=== PATIENT | male | born 1995 | race Two or more races ===

== ENCOUNTER 2017-03-04 20:17 | Inpatient (IN) | payer MEDICAID ==
[~2017-03-04] VITALS: Ht 182.9 cm; Wt 92.3 kg
[~2017-03-04 20:17] MED LIST: ETOMIDATE 20 MG/10 ML ONE; MIDAZOLAM 1 MG/ML, 5ML ONE; PROPOFOL 10 MG/ML, 100ML IV ONE; SUCCINYLCHOLINE 20 MG/ML, 10ML ONE; VECURONIUM 10 MG ONE
[2017-03-04] MEDS ORDERED: NALOXONE 1 MG/ML, 2ML ONE (20:22)
[2017-03-04] MEDS: PROPOFOL 100 ML IV PRN ×2 (20:36→23:45)
[2017-03-04] MEDS ORDERED: SODIUM CHLORIDE 0.9% 1,000ML IVBOLUS ONE (21:00)
[2017-03-04] MEDS ORDERED: SUCCINYLCHOLINE 20 MG/ML, 10ML IVPush ONE (21:00)
[2017-03-04] MEDS ORDERED: ETOMIDATE 20 MG/10 ML IV ONE (21:00)
[2017-03-04] MEDS ORDERED: ONDANSETRON 2MG/ML, 2ML IVPush ONE (21:00)
[2017-03-04] MEDS ORDERED: NALOXONE 1 MG/ML, 2ML IVPush ONE (21:00)
[2017-03-04] MEDS ORDERED: VECURONIUM 10 MG IVPush ONE (21:00)
[2017-03-04 21:05] LABS: DAU SCREEN DISCLAIMER
[2017-03-04 21:19] LABS: ASPARTATE AMINO TRANSFERASE 29 U/L (15-37); BLOOD UREA NITROGEN 8 mg/dL (7-18)
[2017-03-04 21:22] LABS: ACETAMINOPHEN < 2 mcg/mL (10-30)
[2017-03-04] MEDS ORDERED: PROPOFOL 100 ML IV PRN (21:45)
[2017-03-04] MEDS ORDERED: FOLIC ACID 1 MG in DEXTROSE 5% 50 ML IV ONE (22:00)
[2017-03-04] MEDS ORDERED: LIDOCAINE-MPF 1%, 2ML ENDO PRN (22:00)
[2017-03-04] MEDS ORDERED: ONDANSETRON 2MG/ML, 2ML IVPush PRN (22:00)
[2017-03-04] MEDS ORDERED: PHARMACY MAY ADJ FOR RENAL FX MC SCH (22:00)
[2017-03-04] MEDS ORDERED: morphine SULFATE 10 MG/ML, 1ML IVPush PRN (22:00)
[2017-03-04] MEDS ORDERED: LORazepam 2 MG/ML, 1ML IVPush PRN (22:00)
[2017-03-04] MEDS ORDERED: ACETAMINOPHEN 325 MG TABLET PO PRN (22:00)
[2017-03-04] MEDS ORDERED: NS + 20MEQ KCL 1,000 ML IV ONE (22:03)
[2017-03-04] MEDS ORDERED: ENOXAPARIN 40 MG/0.4 ML ONE (22:03)
[2017-03-04] MEDS: ENOXAPARIN 40 MG/0.4 ML SQ SCH (22:05)
[2017-03-04] MEDS: NS + 20MEQ KCL 1,000 ML IV SCH (22:06)
[2017-03-04] MEDS ORDERED: PROPOFOL 100 ML IV ONE (22:22)
[2017-03-04 22:41] LABS: ABG COLLECTION SITE RIGHT BRACHIAL
[2017-03-05] MEDS: PROPOFOL 100 ML IV PRN ×2 (00:04→03:53)
[2017-03-05] MEDS: MIDAZOLAM HCL 25 MG in SODIUM CHLORIDE 0.9% 245 ML IV PRN ×2 (03:53→04:14)
[2017-03-05] MEDS ORDERED: PROPOFOL 100 ML IV ONE (04:12)
[2017-03-05 05:52] LABS: BLOOD UREA NITROGEN 7 mg/dL (7-18)
[2017-03-05 06:30] VITALS: BP 137/66
[2017-03-05 09:24] VITALS: BP 129/74
[2017-03-05] MEDS: MULTIVITAMIN 1 TABLET PO SCH (09:54)
[2017-03-05] MEDS: THIAMINE 100MG TABLET PO SCH (09:54)
[2017-03-05] MEDS: NS + 20MEQ KCL 1,000 ML IV SCH (10:35)
[2017-03-05 13:49] VITALS: BP 132/79
[2017-03-05 20:00] VITALS: BP 134/76
[2017-03-05] MEDS: ENOXAPARIN 40 MG/0.4 ML SQ SCH (21:57)
[2017-03-06 01:27] VITALS: BP 119/68
[2017-03-06 05:26] LABS: BLOOD UREA NITROGEN 10 mg/dL (7-18)
[2017-03-06 07:23] VITALS: BP 123/73
[2017-03-06] MEDS: THIAMINE 100MG TABLET PO SCH (09:26)
[2017-03-06] MEDS: MULTIVITAMIN 1 TABLET PO SCH (09:26)
[2017-03-06] MEDS: SERTRALINE 50MG TABLET PO SCH (09:26)
[2017-03-06] MEDS: ARIPIPRAZOLE 2 MG TABLET PO SCH (09:26)
[2017-03-06 14:19] VITALS: BP 139/84
[2017-03-06 19:46] VITALS: BP 134/77
[2017-03-06] MEDS: ENOXAPARIN 40 MG/0.4 ML SQ SCH (21:35)
[2017-03-07 05:18] LABS: BLOOD UREA NITROGEN 10 mg/dL (7-18)
[2017-03-07 07:29] VITALS: BP 153/79
[2017-03-07] MEDS: MULTIVITAMIN 1 TABLET PO SCH (09:07)
[2017-03-07] MEDS: ARIPIPRAZOLE 2 MG TABLET PO SCH (09:07)
[2017-03-07] MEDS: SERTRALINE 50MG TABLET PO SCH (09:07)
[2017-03-07] MEDS: THIAMINE 100MG TABLET PO SCH (09:07)
[2017-03-07 19:37] VITALS: BP 145/78
[2017-03-07] MEDS: ENOXAPARIN 40 MG/0.4 ML SQ SCH (22:00)
[2017-03-08 07:36] VITALS: BP 130/79
[2017-03-08] MEDS: ARIPIPRAZOLE 2 MG TABLET PO SCH (08:42)
[2017-03-08] MEDS: SERTRALINE 50MG TABLET PO SCH (08:42)
[2017-03-08] MEDS: MULTIVITAMIN 1 TABLET PO SCH (08:42)
[2017-03-08] MEDS: THIAMINE 100MG TABLET PO SCH (08:42)
[2017-03-08] MEDS ORDERED: BENZTROPINE 1 MG TABLET PO PRN (16:30)
[2017-03-08] MEDS ORDERED: DIPHENHYDRAMINE 50 MG CAPSULE PO PRN (16:30)
[2017-03-08] MEDS ORDERED: ARIPIPRAZOLE 5 MG TABLET PO ONE (18:00)
[2017-03-08 20:00] VITALS: BP 131/82
[2017-03-08] MEDS: ENOXAPARIN 40 MG/0.4 ML SQ SCH (22:00)
[2017-03-09 08:33] VITALS: BP 136/71
[2017-03-09] MEDS: SERTRALINE 50MG TABLET PO SCH (09:06)
[2017-03-09] MEDS: ARIPIPRAZOLE 10 MG TABLET PO SCH (09:06)
[2017-03-09] MEDS: THIAMINE 100MG TABLET PO SCH (09:06)
[2017-03-09] MEDS: MULTIVITAMIN 1 TABLET PO SCH (09:06)
[2017-03-09 19:32] VITALS: BP 138/73
[2017-03-09] MEDS: ENOXAPARIN 40 MG/0.4 ML SQ SCH (22:00)
[2017-03-10 07:41] VITALS: BP 113/73
[2017-03-10] MEDS: ARIPIPRAZOLE 10 MG TABLET PO SCH (08:11)
[2017-03-10] MEDS: SERTRALINE 50MG TABLET PO SCH (08:11)
[2017-03-10] MEDS: THIAMINE 100MG TABLET PO SCH (08:11)
[2017-03-10] MEDS: MULTIVITAMIN 1 TABLET PO SCH (08:11)
[2017-03-10 19:57] VITALS: BP 120/78
[2017-03-10] MEDS: ENOXAPARIN 40 MG/0.4 ML SQ SCH (20:50)
[2017-03-11 08:13] VITALS: BP 110/61
[2017-03-11] MEDS: SERTRALINE 50MG TABLET PO SCH (09:15)
[2017-03-11] MEDS: ARIPIPRAZOLE 10 MG TABLET PO SCH (09:15)
[2017-03-11] MEDS: THIAMINE 100MG TABLET PO SCH (09:15)
[2017-03-11] MEDS: MULTIVITAMIN 1 TABLET PO SCH (09:16)
[2017-03-11] MEDS: ENOXAPARIN 40 MG/0.4 ML SQ SCH (19:53)
[2017-03-11 20:37] VITALS: BP 124/77
[2017-03-12 07:49] VITALS: BP 108/61
[2017-03-12] MEDS: SERTRALINE 50MG TABLET PO SCH (08:13)
[2017-03-12] MEDS: ARIPIPRAZOLE 10 MG TABLET PO SCH (08:13)
[2017-03-12] MEDS: MULTIVITAMIN 1 TABLET PO SCH (08:16)
[2017-03-12] MEDS: THIAMINE 100MG TABLET PO SCH (08:16)
[2017-03-12 19:37] VITALS: BP 123/79
[2017-03-12] MEDS: ENOXAPARIN 40 MG/0.4 ML SQ SCH (22:00)
[2017-03-13 07:47] VITALS: BP 119/70
[2017-03-13] MEDS: ARIPIPRAZOLE 10 MG TABLET PO SCH (08:57)
[2017-03-13] MEDS: MULTIVITAMIN 1 TABLET PO SCH (08:57)
[2017-03-13] MEDS: SERTRALINE 50MG TABLET PO SCH (08:58)
[2017-03-13] MEDS: THIAMINE 100MG TABLET PO SCH (08:58)
[2017-03-13 20:00] VITALS: BP 107/70
[2017-03-13] MEDS: ENOXAPARIN 40 MG/0.4 ML SQ SCH (20:27)
[2017-03-13] MEDS ORDERED: QUETIAPINE 100MG TABLET PO SCH (21:00)
[2017-03-14 07:13] VITALS: BP 132/85
[2017-03-14] MEDS: SERTRALINE 50MG TABLET PO SCH (08:27)
[2017-03-14] MEDS: ARIPIPRAZOLE 10 MG TABLET PO SCH (08:27)
[2017-03-14] MEDS: THIAMINE 100MG TABLET PO SCH (08:27)
[2017-03-14] MEDS: MULTIVITAMIN 1 TABLET PO SCH (08:27)
[2017-03-14] MEDS ORDERED: MULT1TAB60 PO (14:09)
[2017-03-14] MEDS ORDERED: SERT50TA5 PO (15:04)
[2017-03-14] MEDS ORDERED: QUET100T PO (15:04)
[2017-03-14] MEDS ORDERED: ARIP10TA13 PO (15:04)
== END 2017-03-14 15:15 | disposition home or self-care (01) | DRG 896 ==
LOC: ED 21:34 → EDIP 21:40 → EDBD 21:40 → 4EST 03-05 05:42 → 3E 03-06 14:16
PROVIDERS: ADMIT Family Medicine; ATTEND Family Medicine
PROC: 0BH17EZ Insertion of Endotracheal Airway into Trachea, Via Natural or Artificial Opening (ICD-10-PCS; principal; 2017-03-04)
PROC: 5A1935Z Respiratory Ventilation, Less than 24 Consecutive Hours (ICD-10-PCS; 2017-03-04)
PROC: 0T9B70Z Drainage of Bladder with Drainage Device, Via Natural or Artificial Opening (ICD-10-PCS; 2017-03-04)
DX: F10.229 Alcohol dependence with intoxication, unspecified (principal); J96.90 Respiratory failure, unspecified, unspecified whether with hypoxia or hypercapnia; F33.2 Major depressive disorder, recurrent severe without psychotic features; R45.851 Suicidal ideations; F22 Delusional disorders; F12.90 Cannabis use, unspecified, uncomplicated; F15.10 Other stimulant abuse, uncomplicated; F43.10 Post-traumatic stress disorder, unspecified; G47.10 Hypersomnia, unspecified; F41.9 Anxiety disorder, unspecified; Z56.0 Unemployment, unspecified; Z59.0 Homelessness; Z91.5 Personal history of self-harm; Z81.8 Family history of other mental and behavioral disorders
CPT/HCPCS: 31500; 36415; 36600; 70450; 71010; 80048; 80053; 80307; 80329; 81003; 82803; 83735; 84439; 84443; 84478; 85025; 93005; 94002; 94003; 96361; 96374; 96375; 96376; J1650; J2250; J2704; J3480; G0480; J0330; J2310; J7030; J7050

== ENCOUNTER 2019-03-13 10:59 | Emergency (ER) | payer MEDICAID, OTHER ==
[~2019-03-13] VITALS: Ht 177.8 cm; Wt 90.0 kg
[2019-03-13 11:03] VITALS: BP 131/77
== END 2019-03-13 15:02 | disposition home or self-care (01) ==
LOC: ED 13:39
DX: S70.01XA Contusion of right hip, initial encounter (principal); X58.XXXA Exposure to other specified factors, initial encounter; Y93.89 Activity, other specified; Y92.89 Other specified places as the place of occurrence of the external cause; Y99.8 Other external cause status
CPT/HCPCS: 99283

== ENCOUNTER 2020-07-29 01:17 | Emergency (ER) | payer MEDICAID ==
[~2020-07-29] VITALS: Ht 170.2 cm; Wt 78.0 kg
[~2020-07-29 01:17] MED LIST changes: +ARIP10TA33 PO; +ARIP20TA5 PO; +BUSP5TAB2 PO; -ETOMIDATE 20 MG/10 ML ONE; -MIDAZOLAM 1 MG/ML, 5ML ONE; +MIRT45TA3 PO; +MULT-449 PO; -PROPOFOL 10 MG/ML, 100ML IV ONE; +QUET100T PO; +SERT50TA28 PO; -SUCCINYLCHOLINE 20 MG/ML, 10ML ONE; -VECURONIUM 10 MG ONE; +VENL150C PO; +gabapentin PO
--- NOTE | 2020-07-29 03:15 | NUR ---
pt to room 1. began crying saying he needs to be back on his medication as the voices are too much. c/o pain to left wrist. aware.
[2020-07-29] MEDS ORDERED: ZIPRASIDONE 20 MG INJ IM ONE ×2 (03:25→03:30)
--- NOTE | 2020-07-29 04:09 | NUR ---
pt currently resting in bed, anxious and agitated at times, but calms himself more.
--- NOTE | 2020-07-29 04:09 | NUR ---
pt medicated IM with meds per MD order at 0335.
--- NOTE | 2020-07-29 05:37 | NUR ---
pt sleeping. in hosp madi schultz up x2
--- NOTE | 2020-07-29 06:36 | NUR ---
at discharge, pt complaining of pain to left wrist again. did not mention it to the doctor when assesed earlier. states too much pain on left wrist. xray ordered before dc
--- NOTE | 2020-07-29 06:51 | NUR ---
BEDSIDE REPORT RECEIVED FROM MARINA NATH.
--- NOTE | 2020-07-29 06:51 | NUR ---
Report and care given to day shift RN
--- NOTE | 2020-07-29 07:02 | NUR ---
PT SITTING UPRIGHT ON GURNEY WITH EYES CLOSED, RESTING COMFORTABLY, NAD, VSS. PT DENIES ANY NEEDS AT THIS TIME. CALL LIGHT AND PERSONAL BELONINGS WITHIN REACH.
--- NOTE | 2020-07-29 07:39 | NUR ---
PT REFUSING TO WAKE UP FOR RE-ASSESSMENT. AWAITING D/C
--- NOTE | 2020-07-29 07:45 | NUR ---
ATTEMPT TO D/C PT FROM ED, REFUSING TO WAKE UP AND ANSWER ANY QUESTIONS. SECURITY TO BEDSIDE TO ASSIST, PT AWKAE AND STATING "I WANT TO KILL MYSELF, I WILL KILL MYSELF WHEN I LEAVE THIS PLACE. I HAVE THE ABILITY TO GET HEROIN TO OD, THATS MY PLAN, OR I WILL TAKE A BUNCH OF PILLS." PT STATES "I REALLY WANT HELP, I NEED HELP". [facility] NURSE AT BEDSIDE DISCUSSING OPTIONS IN [facility] AND RESOURCES. PT ABLE TO CHECK IN TO [facility] VOLUNTARILY. AWAITING FURTHER INFO FROM [facility]. PT REMAINS CALM AND COOPERATIVE WITH STAFF. Addendum: 07/29/20 at 0923 by PHI ATTEMPT TO D/C PT FROM ED, REFUSING TO WAKE UP AND ANSWER ANY QUESTIONS. SECURITY TO BEDSIDE TO ASSIST, PT AWKAE AND STATING "I WANT TO KILL MYSELF, I WILL KILL MYSELF WHEN I LEAVE THIS PLACE. I HAVE THE ABILITY TO GET HEROIN TO OD, THATS MY PLAN, OR I WILL TAKE A BUNCH OF PILLS." PT STATES "I REALLY WANT HELP, I NEED HELP". ED MD AWARE AND DOES NOT FEEL THE PATIENT SHOULD BE PLACED ON A LEGAL HOLD AT THIS TIME. [facility] NURSE AT BEDSIDE DISCUSSING OPTIONS IN [facility] [place] AND RESOURCES. PT ABLE TO CHECK IN TO [facility] VOLUNTARILY. AWAITING FURTHER INFO FROM [facility]. PT REMAINS CALM AND COOPERATIVE WITH STAFF.
--- NOTE | 2020-07-29 08:31 | NUR ---
PT SITTING UPRIGHT ON GURNEY WITH EYES CLOSED, RESTING COMFORTABLY, NAD, VSS. PT DENIES ANY NEEDS AT THIS TIME. CALL LIGHT AND PERSONAL BELONINGS WITHIN REACH. RAPID COVID SWAB PERFORMED PER MD ORDER.
--- NOTE | 2020-07-29 09:05 | NUR ---
PT SITTING UPRIGHT ON GURNEY WITH EYES CLOSED, RESTING COMFORTABLY, NAD, VSS. PT DENIES ANY NEEDS AT THIS TIME. CALL LIGHT AND PERSONAL BELONINGS WITHIN REACH.
[2020-07-29 09:26] VITALS: BP 118/84
--- NOTE | 2020-07-29 09:31 | NUR ---
Patient given discharge instructions and they have confirmed that they understand the instructions. Patient to U to admit self vouluntarily. Pt verbalized understanding of instructions and tear stating "I need this help, I need the help to not kill myself. Thank You". Patient calm and cooperative with staff. Pt escorted to U by U RN.
== END 2020-07-29 09:34 | disposition home or self-care (01) ==
LOC: ED 08:13
DX: F15.159 Other stimulant abuse with stimulant-induced psychotic disorder, unspecified (principal); Z20.828 Contact with and (suspected) exposure to other viral communicable diseases; M25.532 Pain in left wrist; F17.210 Nicotine dependence, cigarettes, uncomplicated; Z72.9 Problem related to lifestyle, unspecified
CPT/HCPCS: 73110; 87635; 96372; 99285; 99406; J3486

== ENCOUNTER 2020-07-29 08:59 | Inpatient (IN) | payer MEDICAID ==
[~2020-07-29] VITALS: Ht 167.6 cm; Wt 99.0 kg
[2020-07-29] MEDS ORDERED: BISACODYL 10 MG SUPP PR PRN (09:00)
[2020-07-29] MEDS ORDERED: ACETAMINOPHEN 325 MG TABLET PO PRN (09:00)
[2020-07-29] MEDS ORDERED: POLYETHYLENE GLYCOL 17 GM PACKET PO PRN (09:00)
[2020-07-29] MEDS ORDERED: DOCUSATE 100 MG CAPSULE PO PRN (09:00)
[2020-07-29] MEDS ORDERED: ONDANSETRON ODT 4 MG PO PRN (09:00)
[2020-07-29 09:25] VITALS: BP 135/83
[2020-07-29 09:48] LABS: MICROSCOPIC NOT IND
[2020-07-29 11:07] LABS: BASOPHILS % (AUTO) 1 % (0-1); EOSINOPHILS % (AUTO) 1 % (1-7); LYMPHOCYTES % (AUTO) 17 % (22-44); MEAN CORPUSCULAR HEMOGLOBIN 30.6 pg (27.5-34.5); MEAN CORPUSCULAR HGB CONC 33.9 g/dL (33.2-36.2); MONOCYTES % (AUTO) 13 % (2-9); NEUTROPHILS % (AUTO) 69 % (42-75); PLATELET COUNT 279 x10^3/uL (130-400); RED BLOOD COUNT 4.83 x10^6/uL (4.38-5.82); RED CELL DISTRIBUTION WIDTH 13.6 % (9.4-14.8)
[2020-07-29 11:11] LABS: ALBUMIN 3.6 g/dL (3.4-5.0); ANION GAP 9 mmol/L (5-15); CALCIUM 8.7 mg/dL (8.5-10.1); CHLORIDE 117 mmol/L (98-107)
[2020-07-29 11:19] LABS: ALANINE AMINOTRANSFERASE 38 U/L (12-78); ALKALINE PHOSPHATASE 91 U/L (45-117); BILIRUBIN,TOTAL 1.1 mg/dL (0.2-1.0); CHOL/HDL RATIO 1.8; CHOLESTEROL, TOTAL 150 mg/dL (140-239); CREATININE 0.98 mg/dL (0.7-1.3); FREE T4 (FREE THYROXINE) 1.33 ng/dL (0.76-1.46); HDL CHOL % 55 % (26-37); HDL CHOLESTEROL (DIRECT) 83 mg/dL (40-60); LDL CHOLESTEROL,CALCULATED 56 mg/dL (54-169); LDL/HDL RATIO 0.7 (0.5-3.0); TOTAL PROTEIN 7.4 g/dL (6.4-8.2); TRIGLYCERIDES 55 mg/dL (50-200); VLDL CHOLESTEROL 11 mg/dL (0-25)
[2020-07-29 11:21] LABS: MD NO
[2020-07-29 11:27] LABS: AMPHETAMINE SCREEN, URINE Positive (Negative); BARBITURATE SCREEN, URINE Negative (Negative); BENZODIAZEPINE SCREEN, URINE Positive (Negative); CANNABINOID SCREEN, URINE Positive (Negative); COCAINE SCREEN, URINE Negative (Negative); METHADONE SCREEN, URINE Negative (Negative); OPIATE SCREEN, URINE Negative (Negative)
[2020-07-29] MEDS: NICOTINE 14MG/24 HR PATCH.TD24 TD SCH (13:00)
[2020-07-29 14:03] LABS: TROPONIN I < 0.015 ng/mL (0.000-0.045)
[2020-07-29 19:43] VITALS: BP 120/74
[2020-07-30 07:17] VITALS: BP 127/67
[2020-07-30] MEDS: FOLIC ACID 1 MG TABLET PO SCH (08:35)
[2020-07-30] MEDS: THIAMINE 100MG TABLET PO SCH (08:35)
[2020-07-30] MEDS ORDERED: ACAMPROSATE 333 MG TABLET.DR PO SCH (09:00)
[2020-07-30 09:56] LABS: ALANINE AMINOTRANSFERASE 32 U/L (12-78); ALBUMIN 3.4 g/dL (3.4-5.0); ANION GAP 6 mmol/L (5-15); CALCIUM 8.7 mg/dL (8.5-10.1); CHLORIDE 108 mmol/L (98-107)
[2020-07-30 09:58] LABS: ALKALINE PHOSPHATASE 94 U/L (45-117); BILIRUBIN,TOTAL 0.7 mg/dL (0.2-1.0); TOTAL PROTEIN 7.3 g/dL (6.4-8.2)
[2020-07-30] MEDS: ARIPIPRAZOLE 10 MG TABLET PO SCH (10:28)
[2020-07-30] MEDS: BUPROPION SR 150 MG TABLET PO SCH (10:28)
[2020-07-30] MEDS: BUPRENORPHINE/NALOXONE 2-0.5MG SL SCH ×2 (10:30→20:27)
[2020-07-30 10:33] LABS: HCT (SEDRATE) 46.2 % (39.2-51.8)
[2020-07-30 10:36] LABS: C-REACTIVE PROTEIN, QUANT 0.27 mg/dL (0.02-0.49)
[2020-07-30 10:38] LABS: TROPONIN I < 0.015 ng/mL (0.000-0.045)
[2020-07-30] MEDS: NICOTINE 14MG/24 HR PATCH.TD24 TD SCH (13:11)
[2020-07-30 19:05] VITALS: BP 128/73
[2020-07-30] MEDS: CARBAMAZEPINE 200 MG TABLET PO SCH (20:27)
[2020-07-30] MEDS: QUETIAPINE 100MG TABLET PO SCH (20:27)
[2020-07-31 07:20] VITALS: BP 99/64
[2020-07-31] MEDS: FOLIC ACID 1 MG TABLET PO SCH (08:34)
[2020-07-31] MEDS: ARIPIPRAZOLE 10 MG TABLET PO SCH (08:35)
[2020-07-31] MEDS: THIAMINE 100MG TABLET PO SCH (08:35)
[2020-07-31] MEDS: BUPROPION SR 150 MG TABLET PO SCH ×2 (08:35→12:51)
[2020-07-31] MEDS: BUPRENORPHINE/NALOXONE 2-0.5MG SL SCH ×2 (08:36→20:47)
[2020-07-31] MEDS: NICOTINE 14MG/24 HR PATCH.TD24 TD SCH (12:51)
[2020-07-31 19:49] VITALS: BP 115/73
[2020-07-31] MEDS: QUETIAPINE 100MG TABLET PO SCH (20:46)
[2020-07-31] MEDS: CARBAMAZEPINE 200 MG TABLET PO SCH (20:47)
[2020-08-01 07:22] VITALS: BP 122/75
[2020-08-01] MEDS: ARIPIPRAZOLE 10 MG TABLET PO SCH (08:21)
[2020-08-01] MEDS: BUPRENORPHINE/NALOXONE 2-0.5MG SL SCH ×3 (08:21→20:12)
[2020-08-01] MEDS: FOLIC ACID 1 MG TABLET PO SCH (08:21)
[2020-08-01] MEDS: THIAMINE 100MG TABLET PO SCH (08:21)
[2020-08-01] MEDS: BUPROPION SR 150 MG TABLET PO SCH ×2 (08:21→12:16)
[2020-08-01] MEDS: NICOTINE 14MG/24 HR PATCH.TD24 TD SCH (12:16)
[2020-08-01 19:48] VITALS: BP 119/79
[2020-08-01] MEDS: QUETIAPINE 100MG TABLET PO SCH (20:11)
[2020-08-01] MEDS: CARBAMAZEPINE 200 MG TABLET PO SCH (20:15)
[2020-08-02 07:17] VITALS: BP 105/67
[2020-08-02 07:18] VITALS: BP 110/71
[2020-08-02] MEDS: THIAMINE 100MG TABLET PO SCH (08:58)
[2020-08-02] MEDS: ARIPIPRAZOLE 10 MG TABLET PO SCH (08:58)
[2020-08-02] MEDS: BUPROPION SR 150 MG TABLET PO SCH ×2 (08:58→12:50)
[2020-08-02] MEDS: FOLIC ACID 1 MG TABLET PO SCH (08:58)
[2020-08-02] MEDS: NICOTINE 14MG/24 HR PATCH.TD24 TD SCH (12:58)
[2020-08-02] MEDS ORDERED: CARB200T4 PO (15:10)
[2020-08-02] MEDS ORDERED: NICO-486 TD (15:10)
[2020-08-02] MEDS ORDERED: ARIP10TA33 PO (15:10)
[2020-08-02] MEDS ORDERED: QUET100T PO (15:10)
[2020-08-02] MEDS ORDERED: BUPR150T73 PO (15:10)
[2020-08-02 19:07] VITALS: BP 94/58
[2020-08-02] MEDS: QUETIAPINE 100MG TABLET PO SCH (20:26)
[2020-08-02] MEDS: CARBAMAZEPINE 200 MG TABLET PO SCH (20:26)
[2020-08-03 07:25] VITALS: BP 124/77
[2020-08-03] MEDS: FOLIC ACID 1 MG TABLET PO SCH (08:33)
[2020-08-03] MEDS: ARIPIPRAZOLE 10 MG TABLET PO SCH (08:33)
[2020-08-03] MEDS: BUPROPION SR 150 MG TABLET PO SCH (08:33)
[2020-08-03] MEDS: THIAMINE 100MG TABLET PO SCH (08:33)
== END 2020-08-03 09:00 | disposition home or self-care (01) | DRG 753 ==
LOC: 3E 09:38
PROVIDERS: ADMIT Psychiatry & Neurology Psychosomatic Medicine; ATTEND Psychiatry & Neurology Psychosomatic Medicine
DX: F31.30 Bipolar disorder, current episode depressed, mild or moderate severity, unspecified (principal); E87.0 Hyperosmolality and hypernatremia; F11.20 Opioid dependence, uncomplicated; F15.20 Other stimulant dependence, uncomplicated; F43.10 Post-traumatic stress disorder, unspecified; R74.01 Elevation of levels of liver transaminase levels; G47.00 Insomnia, unspecified; F17.210 Nicotine dependence, cigarettes, uncomplicated; F98.8 Other specified behavioral and emotional disorders with onset usually occurring in childhood and adolescence; Z79.899 Other long term (current) drug therapy; Z91.5 Personal history of self-harm
CPT/HCPCS: J0572 ×3; 36415; 71045; 80053; 80061; 80307; 81003; 82140; 84439; 84443; 84484; 85025; 85651; 86140; 87040; 87635; 93005; 93306; 96372; 99285; 99406; J3486

== ENCOUNTER 2020-09-21 14:38 | Emergency (ER) | payer MEDICAID ==
[~2020-09-21] VITALS: Ht 177.8 cm; Wt 82.0 kg
[~2020-09-21 14:38] MED LIST changes: +BUPR150T73 PO; +CARB200T4 PO; +NICO-486 TD
--- NOTE | 2020-09-21 15:17 | NUR ---
Dr. Edward ZAMORA swabbed and walked to lab. Pt denies any symptoms or medical history, just here for NOAH swab that he needs to get into a program
[2020-09-21 15:31] VITALS: BP 148/91
== END 2020-09-21 15:32 | disposition home or self-care (01) ==
LOC: ED 15:26
DX: F15.220 Other stimulant dependence with intoxication, uncomplicated (principal); Z20.822 Contact with and (suspected) exposure to COVID-19
CPT/HCPCS: 87635; 99283

== ENCOUNTER 2020-10-14 17:56 | Emergency (ER) | payer MEDICAID ==
[~2020-10-14] VITALS: Ht 172.7 cm; Wt 75.0 kg
[2020-10-14] MEDS ORDERED: ZIPRASIDONE 20 MG INJ IM ONE ×2 (18:12→18:17)
[2020-10-14] MEDS: ZIPRASIDONE 20 MG INJ IM ONE (18:14)
--- NOTE | 2020-10-14 18:14 | NUR ---
TASK RN: MEDICATED PER EMAR
--- NOTE | 2020-10-14 18:16 | NUR ---
ORDER RECEIVED FOR 4-POINT RESTRATINTS AND FLOW CHART STARTED FOR SAME.
[2020-10-14 18:24] LABS: BASOPHILS % (AUTO) 1 % (0-1); EOSINOPHILS % (AUTO) 0 % (1-7); LYMPHOCYTES % (AUTO) 22 % (22-44); MEAN CORPUSCULAR HEMOGLOBIN 30.3 pg (27.5-34.5); MEAN CORPUSCULAR HGB CONC 33.8 g/dL (33.2-36.2); MEAN PLATELET VOLUME 7.6 fL (7.4-10.4); MONOCYTES % (AUTO) 12 % (2-9); NEUTROPHILS % (AUTO) 64 % (42-75); PLATELET COUNT 435 x10^3/uL (130-400); RED BLOOD COUNT 4.51 x10^6/uL (4.38-5.82); RED CELL DISTRIBUTION WIDTH 13.3 % (9.4-14.8)
[2020-10-14 18:25] LABS: MD NO
[2020-10-14] MEDS ORDERED: DROPERIDOL 2.5MG/ML, 2ML IM ONE (18:30)
[2020-10-14] MEDS ORDERED: PLEASE ENTER HEIGHT AND WEIGHT MC SCH (18:30)
[2020-10-14 18:36] LABS: ALANINE AMINOTRANSFERASE 40 U/L (12-78); ALBUMIN 3.6 g/dL (3.4-5.0); ANION GAP 13 mmol/L (5-15); CALCIUM 9.2 mg/dL (8.5-10.1); CHLORIDE 104 mmol/L (98-107); CREATININE 1.19 mg/dL (0.7-1.3); SALICYLATE LEVEL < 1.7 mg/dL (2.8-20.0)
[2020-10-14 18:38] LABS: ALKALINE PHOSPHATASE 127 U/L (45-117); BILIRUBIN,TOTAL 0.8 mg/dL (0.2-1.0); TOTAL PROTEIN 8.1 g/dL (6.4-8.2)
--- NOTE | 2020-10-14 18:48 | NUR ---
PT NO LONGER YELLING OUT, TALKING CONTINUOUSLY TO HIMSELF. REMAINS IN FOUR POINT RESTRAINTS AT THIS TIME. REPORT GIVEN TO SLAVA NATH
--- NOTE | 2020-10-14 18:48 | NUR ---
BEDSIDE REPORT RECEIVED FROM PEÑA NATH
--- NOTE | 2020-10-14 19:00 | NUR ---
PT RESTING ON GURNEY, 4 PO[address]RAINTS REMAIN IN PLACE. PT REMAINS SLIGHTLY AGITATED. Q15 CHECKS CONTINUED, SITTER IN VIEW.
--- NOTE | 2020-10-14 20:00 | NUR ---
ALL RESTRAINTS REMOVED. PT CALM, RESTING ON GURNEY, NADN, VSS. PT DENIES ANY NEEDS AT THIS TIME. SAFETY PRECAUTIONS IN PLACE, SITTER IN VIEW
--- NOTE | 2020-10-14 21:03 | NUR ---
PT CALM, RESTING ON GURNEY, NADN, VSS. PT DENIES ANY NEEDS AT THIS TIME. SAFETY PRECAUTIONS IN PLACE, SITTER IN VIEW. PT UNABLE TO PROVIDE URINE SAMPLE AT THIS TIME.
--- NOTE | 2020-10-14 23:01 | NUR ---
PT SUPINE ON NADIA CONTRERAS VSS. PT STATES HE IS STILL UNABLE TO URINATE AT THIS TIME. SAFETY PRECAUTIONS IN PLACE. SITTER IN VIEW.
--- NOTE | 2020-10-15 00:04 | NUR ---
PT SUPINE ON NADIA CONTRERAS VSS. PT STATES HE IS STILL UNABLE TO URINATE AT THIS TIME. SAFETY PRECAUTIONS IN PLACE. SITTER IN VIEW.
--- NOTE | 2020-10-15 00:25 | NUR ---
PT PROVIDED URINE SAMPLE, SAMPLE WALKED TO BAG. ALL BELONGINGS, X2 BAGS, PLACED IN APPROPRIATE LOCKER. SAFETY RIGGS DOWN, SITTER IN VIEW. PT PROVIDED CRACKERS AND JUICE. PT STILL REPORTING SI WITH PLAN, "I WILL TAKE A BUNCH OF THE PILLS I HAVE".
[2020-10-15 00:42] LABS: AMPHETAMINE SCREEN, URINE Positive (Negative); BARBITURATE SCREEN, URINE Negative (Negative); BENZODIAZEPINE SCREEN, URINE Negative (Negative); CANNABINOID SCREEN, URINE Positive (Negative); COCAINE SCREEN, URINE Negative (Negative); METHADONE SCREEN, URINE Negative (Negative); OPIATE SCREEN, URINE Negative (Negative)
--- NOTE | 2020-10-15 00:58 | NUR ---
PT SUPINE ON GURNEY, RESTING COMFORTABLY, NADN. PT DENIES ANY NEEDS AT THIS TIME. CALL LIGHT AND PERSONAL BELONGINGS WITHIN REACH, SAFETY RIGGS DOWN, SITTER IN VIEW.
--- NOTE | 2020-10-15 04:01 | NUR ---
packet faxed to dejah BIANCHI, JEREMIAHH, RB, [facility]
--- NOTE | 2020-10-15 04:03 | NUR ---
PT SUPINE ON GURNEY, RESTING COMFORTABLY WITH EYES CLOSED. NO NEEDS AT THIS TIME. SAFETY RIGGS AND SAFETY PRECAUTIONS IN PLACE. SITTER IN VIEW.
--- NOTE | 2020-10-15 04:47 | NUR ---
Attempted to assess pt for admission to [facility]. Currently sedated. Discussed with psychiatrist. Plan to reassess when pt is more awake. Notified throughput.
--- NOTE | 2020-10-15 05:03 | NUR ---
PT SUPINE ON GURNEY, RESTING COMFORTABLY WITH EYES CLOSED. NO NEEDS AT THIS TIME. SAFETY RIGGS AND SAFETY PRECAUTIONS IN PLACE. SITTER IN VIEW.
--- NOTE | 2020-10-15 06:03 | NUR ---
PT SUPINE ON GURNEY, SLEEPING. NADN. NO NEEDS AT THIS TIME. SAFETY RIGGS DOWN, SITTER IN VIEW.
--- NOTE | 2020-10-15 06:52 | NUR ---
BEDSIDE REPORT TO MEL NATH
--- NOTE | 2020-10-15 06:53 | NUR ---
ASSUMED CARE OF PT. REPORT RECEIVED FROM SLAVA NATH. PT RESTING ON GURBIG BAY. PSA OUTSIDE DOOR W/IN DIRECT VISUAL OF PT. AZULN. WILL CONTINUE TO MONITOR
--- NOTE | 2020-10-15 07:51 | NUR ---
[facility]CE RN- CALLED U TO INQUIRE ABOUT THEM COMING DOWN TO ASSESS PATIENT FOR ADMISSION. JOSE STATES SHE WILL COME DOWN TO ASSESS PT.
[2020-10-15 08:30] VITALS: BP 122/63
--- NOTE | 2020-10-15 08:34 | NUR ---
PT CALM, SITTING UP ON GURNEY EATING PROVIDED BREAKFAST TRAY. STATES NO PAIN AT THIS TIME. U TEAM AT BEDSIDE FOR ASSESSMENT. VITAL SIGNS TAKEN AND CHARTED. VSS. NAD. PSA AT BEDSIDE. WILL CONTINUE TO MONITOR
--- NOTE | 2020-10-15 10:53 | NUR ---
This RN has taken over care of patient for report. Sitter outside room, pt calm and cooperative. Repor to Carlie NATH. Pt to be taken upstairs.
--- NOTE | 2020-10-15 11:07 | NUR ---
transported [facility] via [employer]
== END 2020-10-15 11:08 ==
LOC: ED 18:52 → EDIP 19:29 → UNDOADMOB 19:29 → ED 10-15 11:08
DX: F44.9 Dissociative and conversion disorder, unspecified (principal); Z20.822 Contact with and (suspected) exposure to COVID-19; F17.210 Nicotine dependence, cigarettes, uncomplicated
CPT/HCPCS: 36415; 80053; 80299; 80307; 80320; 80329; 85025; 87426; 96372; 99285; 99406; J1790; J3486; G0480

== ENCOUNTER 2020-10-15 09:14 | Inpatient (IN) | payer MEDICAID ==
[~2020-10-15] VITALS: Ht 177.8 cm; Wt 73.0 kg
[2020-10-15] MEDS ORDERED: ONDANSETRON ODT 4 MG PO PRN (10:00)
[2020-10-15] MEDS ORDERED: BISACODYL 10 MG SUPP PR PRN (10:00)
[2020-10-15] MEDS ORDERED: DOCUSATE 100 MG CAPSULE PO PRN (10:00)
[2020-10-15] MEDS ORDERED: POLYETHYLENE GLYCOL 17 GM PACKET PO PRN (10:00)
[2020-10-15] MEDS ORDERED: ACETAMINOPHEN 325 MG TABLET PO PRN (10:00)
[2020-10-15 11:14] VITALS: BP 116/79
[2020-10-15] MEDS ORDERED: PLEASE ENTER HEIGHT AND WEIGHT MC SCH (12:00)
[2020-10-15] MEDS: BUPROPION SR 150 MG TABLET PO SCH ×2 (13:05→20:21)
[2020-10-15 19:30] VITALS: BP 120/80
[2020-10-15] MEDS: CARBAMAZEPINE 200 MG TABLET PO SCH (20:21)
[2020-10-15] MEDS: QUETIAPINE 100MG TABLET PO SCH (20:21)
[2020-10-16 07:15] VITALS: BP 124/76
[2020-10-16] MEDS: BUPROPION SR 150 MG TABLET PO SCH ×2 (08:19→20:00)
[2020-10-16] MEDS: ARIPIPRAZOLE 10 MG TABLET PO SCH (08:19)
[2020-10-16] MEDS: NICOTINE 14MG/24 HR PATCH.TD24 TD SCH (08:20)
[2020-10-16 19:30] VITALS: BP 130/80
[2020-10-16] MEDS: CARBAMAZEPINE 200 MG TABLET PO SCH (19:59)
[2020-10-16] MEDS: QUETIAPINE 100MG TABLET PO SCH (20:00)
[2020-10-17 07:20] VITALS: BP 110/69
[2020-10-17] MEDS: BUPROPION SR 150 MG TABLET PO SCH (08:46)
[2020-10-17] MEDS: ARIPIPRAZOLE 10 MG TABLET PO SCH (08:47)
[2020-10-17] MEDS: NICOTINE 14MG/24 HR PATCH.TD24 TD SCH (09:00)
[2020-10-17 13:09] LABS: MICROSCOPIC NOT IND
[2020-10-17 19:30] VITALS: BP 115/70
[2020-10-17] MEDS: CARBAMAZEPINE 200 MG TABLET PO SCH (20:08)
[2020-10-17] MEDS: QUETIAPINE 100MG TABLET PO SCH (20:12)
[2020-10-18 07:24] VITALS: BP 130/79
[2020-10-18] MEDS: BUPROPION SR 150 MG TABLET PO SCH ×2 (08:23→12:05)
[2020-10-18] MEDS: ARIPIPRAZOLE 10 MG TABLET PO SCH (08:23)
[2020-10-18] MEDS: NICOTINE 14MG/24 HR PATCH.TD24 TD SCH (08:24)
[2020-10-18 19:19] VITALS: BP 109/70
[2020-10-18] MEDS: CARBAMAZEPINE 200 MG TABLET PO SCH (20:23)
[2020-10-18] MEDS: QUETIAPINE 100MG TABLET PO SCH (20:24)
[2020-10-19 07:38] VITALS: BP 113/74
[2020-10-19] MEDS: ARIPIPRAZOLE 15 MG TABLET PO SCH (09:06)
[2020-10-19] MEDS: BUPROPION SR 150 MG TABLET PO SCH ×2 (09:08→12:00)
[2020-10-19] MEDS ORDERED: hydrOXyzine 50MG TABLET PO PRN (10:00)
[2020-10-19 19:35] VITALS: BP 120/75
[2020-10-19] MEDS: QUETIAPINE 100MG TABLET PO SCH (20:14)
[2020-10-19] MEDS: CARBAMAZEPINE 200 MG TABLET PO SCH (20:14)
[2020-10-20 07:10] VITALS: BP 101/63
[2020-10-20] MEDS: BUPROPION SR 150 MG TABLET PO SCH (08:30)
[2020-10-20] MEDS: ARIPIPRAZOLE 15 MG TABLET PO SCH (08:30)
[2020-10-20] MEDS ORDERED: BUPR150T73 PO (09:37)
[2020-10-20] MEDS ORDERED: HYDR50TA99 PO (09:37)
[2020-10-20] MEDS ORDERED: QUET100T PO (09:37)
[2020-10-20] MEDS ORDERED: ARIP15TA3 PO (09:37)
[2020-10-20] MEDS ORDERED: CARB200T4 PO (09:37)
== END 2020-10-20 11:30 | disposition home or self-care (01) | DRG 753 ==
LOC: 3E 11:08
PROVIDERS: ADMIT Psychiatry & Neurology Psychosomatic Medicine; ATTEND Psychiatry & Neurology Psychosomatic Medicine
DX: F31.5 Bipolar disorder, current episode depressed, severe, with psychotic features (principal); R45.851 Suicidal ideations; F11.20 Opioid dependence, uncomplicated; F12.90 Cannabis use, unspecified, uncomplicated; F15.20 Other stimulant dependence, uncomplicated; F17.200 Nicotine dependence, unspecified, uncomplicated; F43.10 Post-traumatic stress disorder, unspecified; F98.8 Other specified behavioral and emotional disorders with onset usually occurring in childhood and adolescence; G47.00 Insomnia, unspecified; R45.850 Homicidal ideations; Z78.1 Physical restraint status; Z79.899 Other long term (current) drug therapy; Z91.19 Patient's noncompliance with other medical treatment and regimen
CPT/HCPCS: 81003; 93005